=== PATIENT | male | born 1955 | race Caucasian/White ===

== ENCOUNTER 2021-09-14 14:28 | Observation (INO) ==
[2021-09-14] MEDS ORDERED: IOPAMIDOL 100 ML BOTTLE IV ONE (14:29)
--- NOTE | 2021-09-14 14:54 | Emergency Department Note ---
HPI General Chief complaint: Stroke Symptoms Stated complaint: stroke symptoms Time Seen by Provider: 09/14/21 14:50 Source: patient Mode of arrival: ambulatory Limitations: no limitations History of Present Illness HPI Narrative: 66-year-old male with past medical history of type 2 diabetes on metformin, RA, and hypertension presenting with facial numbness and slurred speech. Patient's last known normal was 1 PM today. He developed some numbness on the right side of his lower lip that spread to his right cheek area. He also felt like he had some numbness on the right side of his tongue. Patient's family noted he was having some slurred speech and right-sided facial droop as well. Symptoms lasted about 20 minutes and resolved spontaneously. Symptoms then returned again similarly and lasted about 15 minutes. On arrival to the ED here his symptoms have completely resolved. Denies any headache, vision changes, head injury, neck pain, chest pain, or shortness of breath. Denies any prior history of [place] or CVA. Not on anticoagulation. He currently denies weakness, numbness, or speech difficulty. Related Data Home Medications Medication Instructions Recorded Confirmed losartan 25 mg tablet 25 mg PO QDAY 10/22/19 09/14/21 metformin 500 mg tablet 500 mg PO QDAY 10/22/19 09/14/21 sodium chloride 0.9 % nasal spray 1 spray intranasal ONCE PRN 10/22/19 09/14/21 aerosol Congestion tamsulosin 0.4 mg capsule 0.4 mg PO QDAY 10/22/19 09/14/21 Previous Rx's Medication Instructions Recorded folic acid 1 mg tablet 1 mg PO QDAY #90 tabs 07/02/21 methotrexate sodium 2.5 mg tablet See Rx Instructions .Route 08/16/21 .COMPLEX #96 tabs Allergies Allergy/AdvReac Type Severity Reaction Status Date / Time lisinopril Allergy Unknown Nasal Verified 09/14/21 14:36 drainage Sulfa drug Allergy Unknown Ankle rash Uncoded 09/14/21 14:16 Review of Systems ROS ROS Narrative: Narrative: Constitutional: Denies fever or chills Eyes: Denies vision change ENT ED: Denies throat pain Cardiovascular: Denies chest pain Respiratory: Denies shortness of breath or cough Gastrointestinal: Denies abdominal pain, nausea or vomiting Genitourinary: Denies dysuria Musculoskeletal: Denies back pain Integumentary: Denies rash Neurological: Reports numbness; Denies headache, weakness or dizziness Psychiatric: Denies anxiety Endocrine: Denies fatigue Hematological/Lymphatic: Denies easy bruising PFSH Narrative Patient History Narrative: Narrative: Medical/Surgical/Family History All Active Problems (Updated 09/14/21 @ 17:17 by Fermin Titus MD) TIA (transient ischemic attack) (Acute) Benign essential hypertension (Chronic) Chronic back pain (Chronic) Type 2 diabetes mellitus (Chronic) Acute bronchitis (Chronic) Prostatitis (Chronic) Arthralgia (Chronic) History of eye surgery (Chronic ~08/2018) History of colonoscopy (Acute 01/19/11) Rheumatoid factor positive (Acute) Fatigue (Acute) Rheumatoid arthritis (Chronic) Encounter for long-term (current) use of high-risk medication (Chronic) Long-term current use of steroids (Acute) Medical History (Updated 09/14/21 @ 17:17 by Fermin Titus MD) Acute bronchitis Arthralgia Benign essential hypertension Chronic back pain Encounter for long-term (current) use of high-risk medication Fatigue Long-term current use of steroids Prostatitis Rheumatoid arthritis Rheumatoid factor positive Type 2 diabetes mellitus Surgical History History of colonoscopy (01/19/11) History of eye surgery (~08/2018) Family History Sister Cervical cancer Social History Smoking Status: Never smoker Alcohol Intake Frequency: a few times a week Exam Narrative Narrative: Narrative: General Limitations: no limitations General appearance: Present alert and in no apparent distress Head Head: Present atraumatic and normocephalic Eye Eye: Present normal appearance, PERRL, EOMI and visual alarcon intact; Absent scleral icterus, conjunctival injection or nystagmus ENT ENT: Present mucous membranes moist Neck Neck: Present normal inspection, full ROM and trachea midline; Absent meningismus or lymphadenopathy Chest Chest: Present symmetric chest wall rise Respiratory Respiratory: Present normal lung sounds bilaterally; Absent respiratory distress, rales/crackles, wheezes, stridor or accessory muscle use Cardiovascular Cardiovascular: Present regular rate and normal rhythm; Absent systolic murmur or diastolic murmur Adbominal Abdominal: Present soft; Absent distention, tenderness, guarding, rebound or rigidity Extremities Extremities: Present normal inspection; Absent pretibial edema Neurological Neurological: Present alert, oriented X3, CN II-XII intact and normal gait; Absent motor sensory deficit Expanded Neurological Patient oriented to: Present person, place and time Speech: Present fluid speech; Absent expressive aphasia or dysarthria CRANIAL NERVES: EOM function (II, III, IV, ): Normal, facial sensation (V): Normal, facial palsy (VII): Normal, gag reflex (IX): Normal, spinal accessory function (XI): Normal and tongue deviation (XII): Normal CEREBELLAR FUNCTION: finger to nose: Normal CEREBELLAR FUNCTION: normal gait Motor strength - LUE: 5/5 Motor strength - RUE: 5/5 Motor strength - LLE: 5/5 Motor strength - RLE: 5/5 UPPER MOTOR NEURON EXAM: mulugeta neglect: Normal and pronator drift: Normal SENSORY EXAM UPPER EXTREMITY: Normal: light touch SENSORY EXAM LOWER EXTREMITY: Normal: light touch Coma Scale Eye Opening: Spontaneous Coma Scale Motor Response: Obeys Commands Coma Scale Verbal Response: Oriented Coma Scale Total: 15 Psychiatric Psychiatric: Present normal affect and normal mood Skin Skin: Present warm (WNL) and dry Course Consultations Consultation #1: Dr. Nguyen, tel[facility] neurology Time: 15:00 Consultation #2: Dr. Olson, hospitalist Time: 16:30 Vital Signs Vital signs: Vital Signs Temperature 97.7 F 09/14/21 14:32 Pulse Rate 59 L 09/14/21 14:32 Respiratory Rate 18 09/14/21 14:32 Blood Pressure 139/77 09/14/21 14:32 Pulse Oximetry (%) 95 09/14/21 14:32 Oxygen Delivery Method 09/14/21 14:32 Temperature 97.7 F 09/14/21 14:32 Pulse Rate 58 L 09/14/21 17:00 Respiratory Rate 18 09/14/21 14:32 Blood Pressure 134/78 09/14/21 17:01 Pulse Oximetry (%) 100 09/14/21 17:00 Oxygen Delivery Method 09/14/21 16:22 [facility] Narrative Medical decision making narrative: 66-year-old male presenting with facial numbness, facial droop, and slurred sp eech which has resolved. Last known normal was 1 M. He has no neurologic deficits on exam currently, NIHSS is 0. Code stroke was activated. CT brain without contrast shows no acute findings. CTA head and neck shows no large vessel occlusion. Labs wnl. EKG with no ischemic changes. I spoke with Dr. Nguyen of telestroke neurology who recommends admission, Plavix load, aspirin, and high intensity statin. Aspirin 324 mg p.o. and Plavix 300 mg p.o. ordered. Plan for admission. Patient endorsed to Dr. Olson, hospitalist, who will accept the patient for admission. Lab Data Lab results reviewed: Yes I reviewed the patient's lab results. Result diagrams: 09/14/21 14:56 09/14/21 14:56 Labs: Lab Results 09/14/21 09/14/21 09/14/21 Range/Units 14:56 14:56 14:56 WBC 5.5 (4.5-11.0) K/mcL RBC 4.67 (4.63-6.08) M/mcL Hgb 14.4 (13.7-17.5) g/dL Hct 43.2 (40.1-51.0) % MCV 92.5 (80.0-100.0) fL MCH 30.8 (26.0-34.0) pg MCHC 33.3 (31.0-36.0) g/dL RDW 13.0 (11.5-14.5) % Plt Count 345 (140-440) K/mcL MPV 8.8 (7.4-10.4) fL Immature Gran % (Auto) 0.5 (0.0-0.5) % Neut % (Auto) 66.9 (38.0-78.0) % Lymph % (Auto) 23.7 (15.5-49.0) % [place] % (Auto) 6.1 (1.0-12.0) % Eos % (Auto) 1.4 (0.0-7.0) % Baso % (Auto) 1.4 (0.0-2.0) % Lymph # (Auto) 1.31 L (1.50-4.80) K/mcL [place] # (Auto) 0.34 (0.10-0.90) K/mcL Eos # (Auto) 0.08 (0.00-0.70) K/mcL Baso # (Auto) 0.08 (0.00-0.30) K/mcL Immature Gran # 0.03 (0.00-0.05) K/mcl Absolute Neutrophils 3.72 (1.80-8.00) K/mcL POC PT (11.9-14.5) PT 13.6 (11.9-14.5) sec POC INR (0.8-1.2) INR 1.0 (0.9-1.1) APTT 30.3 (20.0-37.0) sec Sodium 139 (133-145) mmol/L Potassium 4.0 (3.3-5.1) mmol/L Chloride 105 (96-108) mmol/L Carbon Dioxide 24 (22-30) mmol/L Anion Gap 10.0 (8.0-16.0) BUN 19 (8-23) mg/dL Creatinine 0.8 (0.7-1.2) mg/dL GFR Calculation 93 Glucose 195 H (70-105) mg/dL Calcium 9.2 (8.6-10.4) mg/dL Total Bilirubin 0.4 (0.1-1.0) mg/dL AST 17 (<40) U/L ALT 20 (<40) U/L Alkaline Phosphatase 108 (39-117) U/L Troponin T (<0.03) ng/mL Total Protein 6.8 (5.9-8.4) gm/dL Albumin 4.1 (3.2-5.2) gm/dL Globulin 2.7 (2.2-3.7) gm/dL Albumin/Globulin Ratio 1.5 (1.0-2.3) 09/14/21 09/14/21 Range/Units 14:56 15:09 WBC (4.5-11.0) K/mcL RBC (4.63-6.08) M/mcL Hgb (13.7-17.5) g/dL Hct (40.1-51.0) % MCV (80.0-100.0) fL MCH (26.0-34.0) pg MCHC (31.0-36.0) g/dL RDW (11.5-14.5) % Plt Count (140-440) K/mcL MPV (7.4-10.4) fL Immature Gran % (Auto) (0.0-0.5) % Neut % (Auto) (38.0-78.0) % Lymph % (Auto) (15.5-49.0) % [place] % (Auto) (1.0-12.0) % Eos % (Auto) (0.0-7.0) % Baso % (Auto) (0.0-2.0) % Lymph # (Auto) (1.50-4.80) K/mcL [place] # (Auto) (0.10-0.90) K/mcL Eos # (Auto) (0.00-0.70) K/mcL Baso # (Auto) (0.00-0.30) K/mcL Immature Gran # (0.00-0.05) K/mcl Absolute Neutrophils (1.80-8.00) K/mcL POC PT 13.8 (11.9-14.5) PT (11.9-14.5) sec POC INR 1.2 (0.8-1.2) INR (0.9-1.1) APTT (20.0-37.0) sec Sodium (133-145) mmol/L Potassium (3.3-5.1) mmol/L Chloride (96-108) mmol/L Carbon Dioxide (22-30) mmol/L Anion Gap (8.0-16.0) BUN (8-23) mg/dL Creatinine (0.7-1.2) mg/dL GFR Calculation Glucose (70-105) mg/dL Calcium (8.6-10.4) mg/dL Total Bilirubin (0.1-1.0) mg/dL AST (<40) U/L ALT (<40) U/L Alkaline Phosphatase (39-117) U/L Troponin T < 0.01 (<0.03) ng/mL Total Protein (5.9-8.4) gm/dL Albumin (3.2-5.2) gm/dL Globulin (2.2-3.7) gm/dL Albumin/Globulin Ratio (1.0-2.3) Radiology Data Radiology results reviewed: Yes I reviewed the patient's radiology results. Radiology results narrative: Ordering Physician:Fermin Titus M.D. Date of Service:09/14/21 Procedure(s):CT head/brain wo con INDICATION: neuro deficit/acute stroke COMPARISON: None. TECHNIQUE: Routine noncontrast brain CT scan. Axial images were obtained through the upper chest, neck, and head during arterial phase. MIP and CPR reformatted images. 70ml Isovue 370 injected intravenously. FINDINGS: BRAIN CT: No acute intracranial hemorrhage. No subdural hematoma. No epidural hematoma. No subarachnoid hemorrhage. Cerebral hemispheres are negative. No focal attenuation abnormality. No intra-axial hemorrhage. No localized mass effect. Brain findings normal. No hydrocephalus. Brainstem and cerebellum are negative. No extra-axial abnormalities. Basilar cisterns are normal. No calvarial fracture. No lytic lesion. Temporal bones are negative. AORTIC ARCH: Minimal calcified atherosclerotic plaque. Origins of the left subclavian artery, left vertebral artery, left common carotid artery, innominate artery, right common carotid artery, right subclavian artery, right vertebral artery are negative. No origin stenosis. CAROTID ARTERIES:Right: Right common carotid artery is negative. No stenosis or occlusion. No calcified or noncalcified plaque at the origin of the right internal carotid artery. No significant stenosis or evidence for ulceration. Right internal carotid artery is otherwise negative. No stenosis or occlusion. No fibromuscular dysplasia or dissection. Left: Left common carotid artery is negative. No stenosis or occlusion No calcified or noncalcified plaque at the origin of left internal carotid artery. No significant stenosis. No evidence for ulceration. Left internal carotid artery is otherwise negative. There is no stenosis or occlusion. No dissection or evidence for fibromuscular dysplasia VERTEBRAL ARTERIES:Vertebral arteries are patent without stenosis or occlusion [place]:[Cavernous and supraclinoid internal carotid arteries are negative. No significant stenosis or occlusion. M1 segments of the middle cerebral arteries and A1 segments of the anterior cerebral arteries are negative. A1 segment of the right anterior cerebral artery is hypoplastic. A normal variant. Anterior communicating artery is patent Intracranial vertebral arteries and basilar artery are negative. Posterior cerebral arteries and superior cerebellar arteries are negative]. Incidental note is made of a hypoplastic right P1. This is a normal variant INTRACRANIAL CIRCULATION:No intracranial branch occlusion. No arteriovenous malformation or aneurysm No dural sinus occlusion UPPER CHEST:No pulmonary parenchymal mass or focal infiltrate. Superior mediastinum is negative NECK:There are multiple thyroid nodules consistent with multinodular goiter and left substernal goiter. No pathologic lymphadenopathy. No solid or cystic mass. There is degenerative disc disease with marked disc narrowing at C5-6 and C6-7 BRAIN:No acute intracranial hemorrhage. No focal attenuation abnormalities or pathologic contrast enhancement. IMPRESSION: 1. Negative brain CT scan. No intracranial hemorrhage. No focal attenuation abnormality or pathologic contrast enhancement 2. Negative CTA of the neck and head. Carotid bifurcations are normal 3. No intracranial abnormality. No branch occlusion. 4. Incidental note is made of multinodular goiter and left substernal goiter 5. Degenerative disc disease at C5-6 and C6-7 The exam was performed using radiation dose optimization techniques including, but not limited to, automated exposure control, adjustment of the mA and/or kV according to patient size and use of iterative reconstruction technique. Interpreted and Authenticated by: Nestor oD 09/14/21 Ordering Physician:Fermin Titus M.D. Date of Service:09/14/21 Procedure(s):CT angio head INDICATION: neuro deficit/acute stroke COMPARISON: None. TECHNIQUE: Routine noncontrast brain CT scan. Axial images were obtained through the upper chest, neck, and head during arterial phase. MIP and CPR reformatted images. 70ml Isovue 370 injected intravenously. FINDINGS: BRAIN CT: No acute intracranial hemorrhage. No subdural hematoma. No epidural hematoma. No subarachnoid hemorrhage. Cerebral hemispheres are negative. No focal attenuation abnormality. No intra-axial hemorrhage. No localized mass effect. Brain findings normal. No hydrocephalus. Brainstem and cerebellum are negative. No extra-axial abnormalities. Basilar cisterns are normal. No calvarial fracture. No lytic lesion. Temporal bones are negative. AORTIC ARCH: Minimal calcified atherosclerotic plaque. Origins of the left subclavian artery, left vertebral artery, left common carotid artery, innominate artery, right common carotid artery, right subclavian artery, right vertebral artery are negative. No origin stenosis. CAROTID ARTERIES:Right: Right common carotid artery is negative. No stenosis or occlusion. No calcified or noncalcified plaque at the origin of the right internal carotid artery. No significant stenosis or evidence for ulceration. Right internal carotid artery is otherwise negative. No stenosis or occlusion. No fibromuscular dysplasia or dissection. Left: Left common carotid artery is negative. No stenosis or occlusion No calcified or noncalcified plaque at the origin of left internal carotid artery. No significant stenosis. No evidence for ulceration. Left internal carotid artery is otherwise negative. There is no stenosis or occlusion. No dissection or evidence for fibromuscular dysplasia VERTEBRAL ARTERIES:Vertebral arteries are patent without stenosis or occlusion [place]:[Cavernous and supraclinoid internal carotid arteries are negative. No significant stenosis or occlusion. M1 segments of the middle cerebral arteries and A1 segments of the anterior cerebral arteries are negative. A1 segment of the right anterior cerebral artery is hypoplastic. A normal variant. Anterior communicating artery is patent Intracranial vertebral arteries and basilar artery are negative. Posterior cerebral arteries and superior cerebellar arteries are negative]. Incidental note is made of a hypoplastic right P1. This is a normal variant INTRACRANIAL CIRCULATION:No intracranial branch occlusion. No arteriovenous malformation or aneurysm No dural sinus occlusion UPPER CHEST:No pulmonary parenchymal mass or focal infiltrate. Superior mediastinum is negative NECK:There are multiple thyroid nodules consistent with multinodular goiter and left substernal goiter. No pathologic lymphadenopathy. No solid or cystic mass. There is degenerative disc disease with marked disc narrowing at C5-6 and C6-7 BRAIN:No acute intracranial hemorrhage. No focal attenuation abnormalities or pathologic contrast enhancement. IMPRESSION: 1. Negative brain CT scan. No intracranial hemorrhage. No focal attenuation abnormality or pathologic contrast enhancement 2. Negative CTA of the neck and head. Carotid bifurcations are normal 3. No intracranial abnormality. No branch occlusion. 4. Incidental note is made of multinodular goiter and left substernal goiter 5. Degenerative disc disease at C5-6 and C6-7 The exam was performed using radiation dose optimization techniques including, but not limited to, automated exposure control, adjustment of the mA and/or kV according to patient size and use of iterative reconstruction technique. Interpreted and Authenticated by: Nestor Do 09/14/21 EKG Data EKG #1: EKG attestation: Yes I reviewed and interpreted this EKG. and Yes There are no EKG findings of acute coronary syndrome EKG results narrative: Normal sinus rhythm at [address] elevation or depression Interpretation: no acute changes Discharge Plan Patient/Caregiver Discharge Instructions Pt seen by IMAGE PROCESSING ENGINEER/PA only: No Clinical Impression: TIA (transient ischemic attack) Patient Disposition: Xfer As Inpt ([facility]) Follow up with: Mohini Echevarria DO [Primary Care Provider] - Prescriptions: No Action methotrexate sodium 2.5 mg tablet See Rx Instructions .ROUTE .COMPLEX Qty: 96 1RF Rx Instructions: 20mg (8tablets) once weekly on the same day losartan 25 mg tablet 25 mg PO QDAY metformin 500 mg tablet 500 mg PO QDAY sodium chloride 0.9 % aerosol,spray 1 spray INTRANASAL ONCE PRN (Reason: Congestion) tamsulosin 0.4 mg capsule 0.4 mg PO QDAY folic acid 1 mg tablet 1 mg PO QDAY Qty: 90 1RF
[2021-09-14 15:11] LABS: POC INR 1.2 (0.8-1.2); POC Pro Time 13.8 (11.9-14.5)
--- NOTE | 2021-09-14 15:26 | Cat Scan Report ---
INDICATION: neuro deficit/acute stroke COMPARISON: None. TECHNIQUE: Routine noncontrast brain CT scan. Axial images were obtained through the upper chest, neck, and head during arterial phase. MIP and CPR reformatted images. 70ml Isovue 370 injected intravenously. FINDINGS: BRAIN CT: No acute intracranial hemorrhage. No subdural hematoma. No epidural hematoma. No subarachnoid hemorrhage. Cerebral hemispheres are negative. No focal attenuation abnormality. No intra-axial hemorrhage. No localized mass effect. Brain findings normal. No hydrocephalus. Brainstem and cerebellum are negative. No extra-axial abnormalities. Basilar cisterns are normal. No calvarial fracture. No lytic lesion. Temporal bones are negative. AORTIC ARCH: Minimal calcified atherosclerotic plaque. Origins of the left subclavian artery, left vertebral artery, left common carotid artery, innominate artery, right common carotid artery, right subclavian artery, right vertebral artery are negative. No origin stenosis. CAROTID ARTERIES:Right: Right common carotid artery is negative. No stenosis or occlusion. No calcified or noncalcified plaque at the origin of the right internal carotid artery. No significant stenosis or evidence for ulceration. Right internal carotid artery is otherwise negative. No stenosis or occlusion. No fibromuscular dysplasia or dissection. Left: Left common carotid artery is negative. No stenosis or occlusion No calcified or noncalcified plaque at the origin of left internal carotid artery. No significant stenosis. No evidence for ulceration. Left internal carotid artery is otherwise negative. There is no stenosis or occlusion. No dissection or evidence for fibromuscular dysplasia VERTEBRAL ARTERIES:Vertebral arteries are patent without stenosis or occlusion [place]Cavernous and supraclinoid internal carotid arteries are negative. No significant stenosis or occlusion. M1 segments of the middle cerebral arteries and A1 segments of the anterior cerebral arteries are negative. A1 segment of the right anterior cerebral artery is hypoplastic. A normal variant. Anterior communicating artery is patent Intracranial vertebral arteries and basilar artery are negative. Posterior cerebral arteries and superior cerebellar arteries are negative]. Incidental note is made of a hypoplastic right P1. This is a normal variant INTRACRANIAL CIRCULATION:No intracranial branch occlusion. No arteriovenous malformation or aneurysm No dural sinus occlusion UPPER CHEST:No pulmonary parenchymal mass or focal infiltrate. Superior mediastinum is negative NECK:There are multiple thyroid nodules consistent with multinodular goiter and left substernal goiter. No pathologic lymphadenopathy. No solid or cystic mass. There is degenerative disc disease with marked disc narrowing at C5-6 and C6-7 BRAIN:No acute intracranial hemorrhage. No focal attenuation abnormalities or pathologic contrast enhancement. IMPRESSION: 1. Negative brain CT scan. No intracranial hemorrhage. No focal attenuation abnormality or pathologic contrast enhancement 2. Negative CTA of the neck and head. Carotid bifurcations are normal 3. No intracranial abnormality. No branch occlusion. 4. Incidental note is made of multinodular goiter and left substernal goiter 5. Degenerative disc disease at C5-6 and C6-7 The exam was performed using radiation dose optimization techniques including, but not limited to, automated exposure control, adjustment of the mA and/or kV according to patient size and use of iterative reconstruction technique. Interpreted and Authenticated by: Nestor Do 09/14/21
[2021-09-14 15:30] LABS: Basophils # (Auto) 0.08 K/mcL (0.00-0.30); Basophils % (Auto) 1.4 % (0.0-2.0); Eosinophils # (Auto) 0.08 K/mcL (0.00-0.70); Eosinophils % (Auto) 1.4 % (0.0-7.0); Hematocrit 43.2 % (40.1-51.0); Hemoglobin 14.4 g/dL (13.7-17.5); Lymphocytes # (Auto) 1.31 K/mcL (1.50-4.80); Lymphocytes % (Auto) 23.7 % (15.5-49.0); Mean Cell Volume 92.5 fL (80.0-100.0); Mean Corpuscular HGB Conc 33.3 g/dL (31.0-36.0); Mean Platelet Volume 8.8 fL (7.4-10.4); Monocytes # (Auto) 0.34 K/mcL (0.10-0.90); Monocytes % (Auto) 6.1 % (1.0-12.0); Neutrophils % (Auto) 66.9 % (38.0-78.0); Platelet Count 345 K/mcL (140-440); RBC 4.67 M/mcL (4.63-6.08); WBC 5.5 K/mcL (4.5-11.0)
[2021-09-14 15:38] LABS: Partial Thromboplastin Time 30.3 sec (20.0-37.0); Prothrombin Time 13.6 sec (11.9-14.5)
[2021-09-14 15:53] LABS: ALT/SGPT 20 U/L (<40); AST/SGOT 17 U/L (<40); Albumin 4.1 gm/dL (3.2-5.2); Albumin/Globulin Ratio 1.5 (1.0-2.3); Alkaline Phosphatase 108 U/L (39-117); Bilirubin,Total 0.4 mg/dL (0.1-1.0); Blood Urea Nitrogen 19 mg/dL (8-23); Calcium 9.2 mg/dL (8.6-10.4); Carbon Dioxide 24 mmol/L (22-30); Chloride 105 mmol/L (96-108); Globulin 2.7 gm/dL (2.2-3.7); Glomerular Filtration Rate 93; Glucose 195 mg/dL (70-105)
[2021-09-14] MEDS ORDERED: CLOPIDOGREL 300 MG TABLET PO ONE (15:57)
[2021-09-14] MEDS ORDERED: ASPIRIN 325 MG ENTERIC COATED TABLET PO ONE (15:57)
[2021-09-14] MEDS ORDERED: ASPIRIN 81 MG TAB.CHEW CHEWED ONE (16:11)
[2021-09-14] MEDS ORDERED: ACETAMINOPHEN 325 MG TABLET PO PRN (17:09)
[2021-09-14] MEDS ORDERED: ONDANSETRON 4 MG/2 ML VIAL IV PRN (17:09)
--- NOTE | 2021-09-14 17:19 | Internal Med History&Physical ---
HPI History of Present Illness Patient information: Note initiated : 09/14/21 at 5:15 pm Service Date, if different from initiated Date: [as above] Patient: Rod Taveras 66 y/o M admitted on for stroke symptoms. Chief Complaint: [Neurological deficits] Chief complaint: Dysphasia History of present illness: Mr. Taveras is a 66 year old M with a past medical history significant for type 2 diabetes mellitus, hypertension, BPH, and rheumatoid arthritis who presents to the hospital with new onset neurological deficits that started this afternoon. The patient states that he felt paresthesia of right side of his face. His noticed right-sided facial droop the patient had trouble speaking. He was experiencing dysphagia/dysarthria. The symptoms self resolved within 30 minutes. It was decided to come to the ER for further management and evaluation. On arrival, the patient was hemodynamically stable and afebrile. The ER physician spoke with telemetry neurologist who recommended aspirin and Plavix as well as high intensity statin. It was recommended to monitor the patient overnight. The hospital service was asked admit the patient for suspected TIA. Review of Systems All systems: reviewed and no additional remarkable complaints except as stated Constitutional Constitutional: Present as per HPI EENT Eyes: Present as per HPI; Absent blurry vision Cardiovascular Cardiovascular: Present as per HPI; Absent chest pain, dyspnea, dyspnea on exertion, leg edema or palpatations Respiratory Respiratory: Present as per HPI; Absent cough, dyspnea, dyspnea on exertion, wheezing or stridor Gastrointestinal Gastrointestinal: Present as per HPI; Absent abdominal pain, diarrhea, dysphagia, hematemesis, melena, nausea or vomiting Musculoskeletal Musculoskeletal: Present as per HPI; Absent joint swelling, limited range of motion, muscle cramps, muscle weakness or myalgias Integumentary Integumentary: Present as per HPI; Absent erythema, new lesions, rash or wounds Neurological Neurological: Present as per HPI, abnormal speech, focal weakness and numbness; Absent abnormal gait, behavioral changes, headache(s), loss of vision, sensory deficit or syncope Endocrine Endocrine: Absent change in body appearance, fatigue or heat intolerance Hematologic/Lymphatic Hematologic/Lymphatic: Present as per HPI PFSH PFSH All Active Problems (Updated 09/14/21 @ 17:17 by Fermin Titus MD) TIA (transient ischemic attack) (Acute) Benign essential hypertension (Chronic) Chronic back pain (Chronic) Type 2 diabetes mellitus (Chronic) Acute bronchitis (Chronic) Prostatitis (Chronic) Arthralgia (Chronic) History of eye surgery (Chronic ~08/2018) History of colonoscopy (Acute 01/19/11) Rheumatoid factor positive (Acute) Fatigue (Acute) Rheumatoid arthritis (Chronic) Encounter for long-term (current) use of high-risk medication (Chronic) Long-term current use of steroids (Acute) Medical History (Updated 09/14/21 @ 17:17 by Fermin Titus MD) Acute bronchitis Arthralgia Benign essential hypertension Chronic back pain Encounter for long-term (current) use of high-risk medication Fatigue Long-term current use of steroids Prostatitis Rheumatoid arthritis Rheumatoid factor positive Type 2 diabetes mellitus Surgical History History of colonoscopy (01/19/11) History of eye surgery (~08/2018) Family History Sister Cervical cancer Social History marital status: occupational status: employed occupation: [employer] alcohol intake frequency: a few times a week MEDS/ALLERGIES Home Medications and Allergies Home Medications Medication Instructions Recorded Confirmed Type losartan 25 mg tablet 25 mg PO QDAY 10/22/19 09/14/21 History metformin 500 mg tablet 500 mg PO QDAY 10/22/19 09/14/21 History sodium chloride 0.9 % nasal spray 1 spray intranasal ONCE PRN 10/22/19 09/14/21 History aerosol Congestion tamsulosin 0.4 mg capsule 0.4 mg PO QDAY 10/22/19 09/14/21 History folic acid 1 mg tablet 1 mg PO QDAY #90 tabs 07/02/21 09/14/21 Rx methotrexate sodium 2.5 mg tablet See Rx Instructions .Route 08/16/21 09/14/21 Rx .COMPLEX #96 tabs Allergies Allergy/AdvReac Type Severity Reaction Status Date / Time lisinopril AdvReac Mild Nasal Verified 09/14/21 17:18 drainage Sulfa (Sulfonamide AdvReac Mild Rash Verified 09/14/21 17:19 Antibiotics) EXAM Constitutional Vitals: Temp Pulse Resp BP Pulse Ox O2 Del Method 97.7 F 58 L 18 134/78 100 09/14/21 14:32 09/14/21 17:00 09/14/21 14:32 09/14/21 17:01 09/14/21 17:00 09/14/21 16:22 General appearance: average body habitus Head Head exam: Present atraumatic, normal inspection and normocephalic Eye Eye exam: Present EOMI, normal appearance and PERRL; Absent conjunctival injection ENT ENT exam: Present normal exam; Absent mucous membranes dry Neck Neck exam: Present full ROM; Absent lymphadenopathy Respiratory Respiratory exam: Present normal respiratory exam and CTAB; Absent decreased breath sounds, respiratory distress or wheezes Cardiovascular Cardiovascular exam: Present normal rate and rhythm and RRR; Absent JVD GI/Abdominal GI/Abdominal exam: Present normal bowel sounds and soft; Absent diminished bowel sounds, distended, guarding, mass, rebound or tenderness Neurological Exam Neurological exam: Present alert, CN II-XII intact and oriented X3 Psychiatric Psychiatric exam: Present normal affect and normal mood Skin Skin exam: Present intact and warm; Absent erythema, pallor, petechiae or rash DATA Data Completed and Pending Labs: Labs from last 24 hours 09/14/21 09/14/21 09/14/21 16:08 15:09 14:56 WBC RBC Hgb Hct MCV MCH MCHC RDW Plt Count MPV Immature Gran % (Auto) Neut % (Auto) Lymph % (Auto) [place] % (Auto) Eos % (Auto) Baso % (Auto) Lymph # (Auto) [place] # (Auto) Eos # (Auto) Baso # (Auto) Immature Gran # Absolute Neutrophils POC PT 13.8 PT POC INR 1.2 INR APTT Sodium Potassium Chloride Carbon Dioxide Anion Gap BUN Creatinine GFR Calculation Glucose Calcium Total Bilirubin AST ALT Alkaline Phosphatase Troponin T < 0.01 Total Protein Albumin Globulin Albumin/Globulin Ratio Urine Color Pending Urine Appearance Pending Urine pH Pending Ur Specific [place] Pending Urine Protein Pending Urine Glucose (UA) Pending Urine Ketones Pending Urine Occult Blood Pending Urine Nitrate Pending Urine Bilirubin Pending Urine Urobilinogen Pending Ur Leukocyte Esterase Pending 09/14/21 09/14/21 09/14/21 14:56 14:56 14:56 WBC 5.5 RBC 4.67 Hgb 14.4 Hct 43.2 MCV 92.5 MCH 30.8 MCHC 33.3 RDW 13.0 Plt Count 345 MPV 8.8 Immature Gran % (Auto) 0.5 Neut % (Auto) 66.9 Lymph % (Auto) 23.7 [place] % (Auto) 6.1 Eos % (Auto) 1.4 Baso % (Auto) 1.4 Lymph # (Auto) 1.31 L [place] # (Auto) 0.34 Eos # (Auto) 0.08 Baso # (Auto) 0.08 Immature Gran # 0.03 Absolute Neutrophils 3.72 POC PT PT 13.6 POC INR INR 1.0 APTT 30.3 Sodium 139 Potassium 4.0 Chloride 105 Carbon Dioxide 24 Anion Gap 10.0 BUN 19 Creatinine 0.8 GFR Calculation 93 Glucose 195 H Calcium 9.2 Total Bilirubin 0.4 AST 17 ALT 20 Alkaline Phosphatase 108 Troponin T Total Protein 6.8 Albumin 4.1 Globulin 2.7 Albumin/Globulin Ratio 1.5 Urine Color Urine Appearance Urine pH Ur Specific [place] Urine Protein Urine Glucose (UA) Urine Ketones Urine Occult Blood Urine Nitrate Urine Bilirubin Urine Urobilinogen Ur Leukocyte Esterase A/P Assessment and plan (1) TIA (transient ischemic attack): Status: Acute (2) Benign essential hypertension: Status: Chronic (3) Type 2 diabetes mellitus: Status: Chronic (4) Rheumatoid arthritis: Status: Chronic Qualifiers: Rheumatoid arthritis location: multiple sites Rheumatoid factor presence: with rheumatoid factor Qualified Code(s): M05.79 - Rheumatoid arthritis with rheumatoid factor of multiple sites without organ or systems involvement Narrative A/P Narrative: At this point, the patient is asymptomatic. His CTA was negative and his carotids did not reveal obstructive disease. We will obtain MRI and TTE. He will be monitored overnight. He has been Plavix loaded and given a dose of aspirin. We will start atorvastatin 80 mg p.o. daily. His home metformin will be held and continue insulin sliding scale. The patient will likely go home tomorrow morning. Time Spent With Patient Time: Total time spent is greater than 50% in coordination of care (as documented) at patient's floor/unit and/or counseling patient: Total time spent with greater than 50% in coordination of care (as documented) at patient's floor/unit and/or counseling patient:: 50 - 70 minutes QUALITY Stroke Symptom Onset Unknown: No
[2021-09-14 17:39] LABS: Appearance,Urine CLEAR (Clear); Bilirubin,Urine Negative (Negative); Color,Urine YELLOW; Culture Indicated,Urine No; Glucose,Urine (UA) Negative (Negative); Ketones,Urine Negative (Negative); Leukocyte Esterase,Urine Negative /uL (Negative); Nitrate,Urine Negative (Negative); Protein,Urine Negative (Negative); Specific Gravity,Urine > 1.060 (1.000-1.035); Urine Blood Negative (Negative); Urobilinogen,Urine Negative
[2021-09-14] MEDS ORDERED: DEXTROSE 50% 50 ML VIAL IV PRN (18:46)
[2021-09-14] MEDS ORDERED: DEXTROSE 31 GM ORAL.SUSP PO PRN (18:46)
[2021-09-14] MEDS ORDERED: ATORVASTATIN 40 MG TABLET PO SCH (21:00)
[2021-09-14] MEDS ORDERED: SENNOSIDES 1 TABLET PO SCH (21:00)
[2021-09-14] MEDS: 0.9 % SODIUM CHLORIDE 10 ML SYRINGE IV SCH (22:00)
[2021-09-15] MEDS: DOCUSATE SODIUM 100 MG CAPSULE PO SCH ×2 (00:01→09:56)
[2021-09-15] MEDS: INSULIN LISPRO 1 UNIT/0.01 ML UNIT SQ SCH ×3 (00:02→11:17)
[2021-09-15] MEDS: 0.9 % SODIUM CHLORIDE 10 ML SYRINGE IV SCH ×2 (06:37→13:29)
[2021-09-15 06:38] LABS: Basophils # (Auto) 0.09 K/mcL (0.00-0.30); Basophils % (Auto) 1.8 % (0.0-2.0); Eosinophils # (Auto) 0.13 K/mcL (0.00-0.70); Eosinophils % (Auto) 2.5 % (0.0-7.0); Hematocrit 41.4 % (40.1-51.0); Hemoglobin 13.7 g/dL (13.7-17.5); Lymphocytes # (Auto) 1.36 K/mcL (1.50-4.80); Lymphocytes % (Auto) 26.6 % (15.5-49.0); Mean Cell Volume 93.2 fL (80.0-100.0); Mean Corpuscular HGB Conc 33.1 g/dL (31.0-36.0); Mean Platelet Volume 8.8 fL (7.4-10.4); Monocytes # (Auto) 0.46 K/mcL (0.10-0.90); Neutrophils % (Auto) 59.5 % (38.0-78.0); Platelet Count 285 K/mcL (140-440); RBC 4.44 M/mcL (4.63-6.08); WBC 5.1 K/mcL (4.5-11.0)
[2021-09-15 07:02] LABS: Blood Urea Nitrogen 18 mg/dL (8-23); Calcium 8.9 mg/dL (8.6-10.4); Carbon Dioxide 23 mmol/L (22-30); Chloride 108 mmol/L (96-108); Glomerular Filtration Rate 93; Glucose 131 mg/dL (70-105)
[2021-09-15] MEDS ORDERED: ENOXAPARIN 40 MG/0.4 ML SYRINGE SQ SCH (09:00)
[2021-09-15] MEDS ORDERED: CLOPIDOGREL 75 MG TABLET PO SCH (09:00)
[2021-09-15] MEDS ORDERED: ASPIRIN 81 MG TAB.CHEW CHEWED SCH (09:00)
--- NOTE | 2021-09-15 09:00 | Magnetic Resonance Report ---
INDICATION: TIA TECHNIQUE: Limited MRI scan. Sagittal T1-weighted images. Axial FLAIR and diffusion-weighted images COMPARISON: Previous CT scan dated 09/14/2021 FINDINGS: No restricted diffusion. No acute infarction. Cerebral hemispheres are negative. No focal intra-axial signal abnormality. Normal brain volume. Brainstem and cerebellum are negative. No extra-axial, intracranial abnormality IMPRESSION: Negative limited brain MRI scan. Interpreted and Authenticated by: Nestor Do 09/15/21
--- NOTE | 2021-09-15 09:47 | EKG ---
[facility] Test Date: 2021-09-14 Pat Name: Rod Taveras Department: ED Room: Gender: Male Assignment Manager: AW : 1955 Requested By: Fermin Titus Order Number: [id number] Reading MD: Nestor Vasquez M.D. Measurements Intervals Essie Rate: 61 P: 63 MS: 152 QRS: 27 QRSD: 99 T: 25 QT: 430 QTc: 433 Interpretive Statements Sinus arrhythmia Electronically Signed On 09-15-2021 9:47:30 PDT by Nestor Vasquez M.D. /[email or web address]/[email or web address]/[id number]
[2021-09-15] MEDS ORDERED: TAMSULOSIN 0.4 MG CAPSULE PO SCH (10:45)
--- NOTE | 2021-09-15 11:19 | Discharge Summary ---
Discharge Provider Provider IMPORTANT FOLLOW-UP INFORMATION FOR PCP: Patient information: Note initiated : 09/15/21 at 11:17 am Service Date, if different from initiated Date: [] Patient: Rod Taveras 66 y/o M admitted on 09/14/21 for stroke symptoms. Chief Complaint: [Dysphasia/dysarthria] Date of admission: 09/14/21 17:54 Discharge date: 09/15/21 Primary care physician: Mohini Echevarria Admitting clinician: Adolph Olson Consults: 09/14/21 15:02 Consult to Physician [CONS] Stat Comment: Consulting Provider: Telestroke,Provider Reason For Exam: Physician to Consult 09/14/21 16:28 Consult to Physician [CONS] Stat Comment: Consulting Provider: Adolph Olson Reason For Exam: Physician to Consult Attending physician on discharge: Adolph Olson COURSE Hospital Course Hospital course: Chief complaint: Dysphasia History of present illness: Mr. Taveras is a 66 year old M with a past medical history significant for type 2 diabetes mellitus, hypertension, BPH, and rheumatoid arthritis who presents to the hospital with new onset neurological deficits that started this afternoon. The patient states that he felt paresthesia of right side of his face. His noticed right-sided facial droop the patient had trouble speaking. He was experiencing dysphagia/dysarthria. The symptoms self resolved within 30 minutes. It was decided to come to the ER for further management and evaluation. On arrival, the patient was hemodynamically stable and afebrile. The ER physician spoke with telemetry neurologist who recommended aspirin and Plavix as well as high intensity statin. It was recommended to monitor the patient overnight. The hospital service was asked admit the patient for suspected TIA. 09/15: The patient is doing quite well and remains asymptomatic. His MRI was performed this morning and was unremarkable. TTE results are pending. He will be discharged on dual antiplatelet therapy and high-dose Lipitor. It is recommended he follow-up with his primary care physician in 1 to 2 weeks time. Discharge diagnosis: TIA Time Spent with Patient Time attestation: Total time spent providing and/or coordinating discharge services: Time spent: Greater than 30 minutes EXAM Constitutional Vitals: Temp Pulse Resp BP Pulse Ox O2 Del Method 97.7 F 48 L 18 129/76 97 09/15/21 08:00 09/15/21 08:00 09/15/21 08:00 09/15/21 08:00 09/15/21 08:00 09/15/21 08:00 General appearance: average body habitus Head Head exam: Present atraumatic, normal inspection and normocephalic Eye Eye exam: Present EOMI, normal appearance and PERRL; Absent conjunctival injection ENT ENT exam: Present normal exam; Absent mucous membranes dry Neck Neck exam: Present full ROM; Absent lymphadenopathy Respiratory Respiratory exam: Present normal respiratory exam and CTAB; Absent decreased breath sounds, respiratory distress or wheezes Cardiovascular Cardiovascular exam: Present normal rate and rhythm and RRR; Absent JVD GI/Abdominal GI/Abdominal exam: Present normal bowel sounds and soft; Absent diminished bowel sounds, distended, guarding, mass, rebound or tenderness Neurological Exam Neurological exam: Present alert, CN II-XII intact and oriented X3 Psychiatric Psychiatric exam: Present normal affect and normal mood Skin Skin exam: Present intact and warm; Absent erythema, pallor, petechiae or rash Discharge Data Data Completed and Pending Labs on day of discharge: Labs from last 24 hours 09/15/21 09/15/21 09/14/21 05:29 05:29 16:08 WBC 5.1 RBC 4.44 L Hgb 13.7 Hct 41.4 MCV 93.2 MCH 30.9 MCHC 33.1 RDW 13.0 Plt Count 285 MPV 8.8 Immature Gran % (Auto) 0.6 H Neut % (Auto) 59.5 Lymph % (Auto) 26.6 [place] % (Auto) 9.0 Eos % (Auto) 2.5 Baso % (Auto) 1.8 Lymph # (Auto) 1.36 L [place] # (Auto) 0.46 Eos # (Auto) 0.13 Baso # (Auto) 0.09 Immature Gran # 0.03 Absolute Neutrophils 3.07 POC PT PT POC INR INR APTT Sodium 140 Potassium 4.1 Chloride 108 Carbon Dioxide 23 Anion Gap 9.0 BUN 18 Creatinine 0.8 GFR Calculation 93 Glucose 131 H Calcium 8.9 Total Bilirubin AST ALT Alkaline Phosphatase Troponin T Total Protein Albumin Globulin Albumin/Globulin Ratio Urine Color Yellow Urine Appearance Clear Urine pH 6.0 Ur Specific [place] > 1.060 Urine Protein Negative Urine Glucose (UA) Negative Urine Ketones Negative Urine Occult Blood Negative Urine Nitrate Negative Urine Bilirubin Negative Urine Urobilinogen Negative Ur Leukocyte Esterase Negative Ur Culture Indicated? No 09/14/21 09/14/21 09/14/21 15:09 14:56 14:56 WBC RBC Hgb Hct MCV MCH MCHC RDW Plt Count MPV Immature Gran % (Auto) Neut % (Auto) Lymph % (Auto) [place] % (Auto) Eos % (Auto) Baso % (Auto) Lymph # (Auto) [place] # (Auto) Eos # (Auto) Baso # (Auto) Immature Gran # Absolute Neutrophils POC PT 13.8 PT POC INR 1.2 INR APTT Sodium 139 Potassium 4.0 Chloride 105 Carbon Dioxide 24 Anion Gap 10.0 BUN 19 Creatinine 0.8 GFR Calculation 93 Glucose 195 H Calcium 9.2 Total Bilirubin 0.4 AST 17 ALT 20 Alkaline Phosphatase 108 Troponin T < 0.01 Total Protein 6.8 Albumin 4.1 Globulin 2.7 Albumin/Globulin Ratio 1.5 Urine Color Urine Appearance Urine pH Ur Specific [place] Urine Protein Urine Glucose (UA) Urine Ketones Urine Occult Blood Urine Nitrate Urine Bilirubin Urine Urobilinogen Ur Leukocyte Esterase Ur Culture Indicated? 09/14/21 09/14/21 14:56 14:56 WBC 5.5 RBC 4.67 Hgb 14.4 Hct 43.2 MCV 92.5 MCH 30.8 MCHC 33.3 RDW 13.0 Plt Count 345 MPV 8.8 Immature Gran % (Auto) 0.5 Neut % (Auto) 66.9 Lymph % (Auto) 23.7 [place] % (Auto) 6.1 Eos % (Auto) 1.4 Baso % (Auto) 1.4 Lymph # (Auto) 1.31 L [place] # (Auto) 0.34 Eos # (Auto) 0.08 Baso # (Auto) 0.08 Immature Gran # 0.03 Absolute Neutrophils 3.72 POC PT PT 13.6 POC INR INR 1.0 APTT 30.3 Sodium Potassium Chloride Carbon Dioxide Anion Gap BUN Creatinine GFR Calculation Glucose Calcium Total Bilirubin AST ALT Alkaline Phosphatase Troponin T Total Protein Albumin Globulin Albumin/Globulin Ratio Urine Color Urine Appearance Urine pH Ur Specific [place] Urine Protein Urine Glucose (UA) Urine Ketones Urine Occult Blood Urine Nitrate Urine Bilirubin Urine Urobilinogen Ur Leukocyte Esterase Ur Culture Indicated? Discharge Plan Patient/Caregiver Discharge Instructions Activity: increase activity as tolerated Diet: Regular Diet Instructions: Transient Ischemic Attack (DC) Prescriptions: New atorvastatin 40 mg Tablet 80 mg PO HS Qty: 30 0RF clopidogrel 75 mg Tablet 75 mg PO DAILY Qty: 30 0RF aspirin [Adult Low Dose Aspirin] 81 mg tablet,delayed release (DR/EC) 81 mg PO QDAY Qty: 30 0RF Continued methotrexate sodium 2.5 mg tablet See Rx Instructions .ROUTE .COMPLEX Qty: 96 1RF Rx Instructions: 20mg (8tablets) once weekly on Monday losartan 25 mg tablet 25 mg PO QDAY sodium chloride 0.9 % aerosol,spray 1 spray INTRANASAL ONCE PRN (Reason: Congestion) tamsulosin 0.4 mg capsule 0.4 mg PO QDAY folic acid 1 mg tablet 1 mg PO QDAY Qty: 90 1RF metformin 500 mg tablet extended release 24 hr 1 tab PO QDAY Follow Up Plan Follow up with: Mohini Ecehvarria DO [Primary Care Provider] - Patient Disposition: Home, Self-Care Rehab Potential: Good I certify that the patient requires SNF services: No Overall status at discharge: patient is progressing back to baseline Discharge Orders: Discharge Order (Routine); Ordered 09/15/21 Ordered By: Adolph SINGH VTE Deep Vein Thrombosis/Pulmonary Embolism Present on Admission: No
[2021-09-16] MEDS ORDERED: TAMSULOSIN 0.4 MG CAPSULE PO SCH (09:00)
== END 2021-09-15 13:45 | disposition home or self-care (01) ==
LOC: ED 14:28 → INTOOBSV 17:54 → MEDSUR 17:54
PROVIDERS: ADMIT Student in an Organized Health Care Education/Training Program; ATTEND Student in an Organized Health Care Education/Training Program